=== PATIENT | female | born 1985 | race Caucasian/White ===

== ENCOUNTER 2019-12-25 10:22 | Emergency (ER) | payer BC, SELFPAY ==
[2019-12-25 10:29] VITALS: BP 99/60; PULSE 72; RESP 16; TEMP 37.1; O2SAT 100
--- NOTE | 2019-12-25 10:44 | ED.SKABFB ---
HPI - Skin/Abscess/Foreign Bdy General Chief complaint: Skin/Abscess/Foreign Body Stated complaint: INSECT BITE Time Seen by Provider: 12/25/19 10:35 Source: patient and RN notes reviewed Mode of arrival: ambulatory Limitations: no limitations History of Present Illness HPI narrative: Patient presents today complaining of left arm insect bite that she received yesterday. Reports she noted a red ring around the bite. She tried some witch gayatri this morning. Reports some itching, but denies pain. MD complaint: insect bite/sting Related Data Home Medications Medication Instructions Recorded Confirmed multivitamin 1 tablet PO DAILY 04/22/19 12/25/19 Allergies Allergy/AdvReac Type Severity Reaction Status Date / Time No Known Drug Allergies Allergy Unknown none Verified 12/25/19 10:28 Review of Systems Review of Systems: Narrative: CONSTITUTIONAL: Denies body aches, fever, chills, or sweats. EYES: Denies visual changes, redness, or discharge. ENT: Denies rhinorrhea, congestion, sore throat, or otalgia. CARDIOVASCULAR: Denies chest pain, palpitations, or edema. RESPIRATORY: Denies cough or dyspnea. GASTROINTESTINAL: Denies abdominal pain, nausea, vomiting, or diarrhea. GENITOURINARY: Denies dysuria or hematuria. SKIN: Denies rash, or wounds. + Insect bite to left upper arm MUSCULOSKELETAL: Denies back pain, joint pain, or myalgia. NEUROLOGIC: Denies headache, numbness, tingling, or weakness. PSYCH: Denies depression or anxiety. PMFSH Social History Social History Smoking status: Never smoker Alcohol intake: current Comments At time of signature, I have reviewed and agree with nursing past medical, surgical, social and family history unless otherwise noted. Please see nursing chart for further information. There is no relevant family history pertinent to the presenting complaint Exam Narrative: Exam Narrative: GENERAL: Well-appearing, well-nourished, and in no acute distress. HEAD: Normocephalic, atraumatic. EYES: EOMI. No redness or drainage. Conjunctivae normal. ENT: Mucous membranes pink and moist. NECK: Normal AROM. CHEST: No respiratory distress. EXTREMITIES: Normal range of motion. No edema. SKIN: Warm, dry, no rash. Capillary refill normal. Normal skin turgor. Insect bite/puncture wound to the left upper arm with surrounding faint erythema measuring 4 x 3.5 cm round. No induration or fluctuance noted. No drainage. Nontender to palpation. NEURO: No focal deficits. Alert and oriented x3. Gait steady. PSYCH: Normal affect. No signs of depression or anxiety. Course Vital Signs Vital signs: Vital Signs Temperature 98.7 F 12/25/19 10:29 Pulse Rate 72 12/25/19 10:29 Respiratory Rate 16 12/25/19 10:29 Blood Pressure 99/60 L 12/25/19 10:29 Pulse Oximetry 100 12/25/19 10:29 Temperature 98.7 F 12/25/19 10:29 Pulse Rate 72 12/25/19 10:29 Respiratory Rate 16 12/25/19 10:29 Blood Pressure 99/60 L 12/25/19 10:29 Pulse Oximetry 100 12/25/19 10:29 Reviewed MDM - Skin/Abscess/Foreign Bdy Differential Diagnosis Differential diagnosis: Likely abscess of skin or subcutaneous tissue, cellulitis, insect bites and impetigo Critical Care Time Critical Care Time Critical Care Time: No Discharge Plan Discharge Clinical Impression: Allergic reaction to insect bite Patient Disposition: Home, Self-Care Condition: Stable Instructions: Insect Bite or Sting (ED) Additional Instructions: Please use the triamcinolone cream as directed. Monitor for any signs of infection such as redness, swelling, increased pain or drainage, and see your doctor if you note any. You may take an antihistamine such as Zyrtec, Claritin, Reema, or Benadryl for itching. Patient Language: [place] Prescriptions: New triamcinolone acetonide 0.1 % cream 1 applic TOPICAL BID Qty: 30 RF: 0 No Action albuterol sulfate
== END 2019-12-25 10:50 | disposition home or self-care (01) ==
PROVIDERS: Emergency Provider Nurse Practitioner
DX: S40.862A Insect bite (nonvenomous) of left upper arm, initial encounter (principal); W57.XXXA Bitten or stung by nonvenomous insect and other nonvenomous arthropods, initial encounter
CPT/HCPCS: 99213; G0463